=== PATIENT | female | born 1945 | race Caucasian/White ===

== ENCOUNTER 2018-07-18 14:58 | Observation (INO) ==
[2018-07-18] MEDS ORDERED: Dextrose 50% in Water 50 ML Vial IV.PUSH PRN (22:34)
[2018-07-18] MEDS: MethylPREDNISolone Sod Succinate Inj 40 MG/ML Vial IV.PUSH SCH (23:44)
[2018-07-19] MEDS: Insulin NovoLOG Aspart Correctional Sugar Inj SQ SCH ×5 (00:15→23:04)
[2018-07-19] MEDS ORDERED: Melatonin 5 MG Tablet PO ONE (01:24)
[2018-07-19] MEDS: MethylPREDNISolone Sod Succinate Inj 40 MG/ML Vial IV.PUSH SCH (05:35)
[2018-07-19] MEDS: MethylPREDNISolone Sod Succinate Inj 125 MG/2 ML Vial IV.PUSH SCH ×3 (07:18→22:53)
[2018-07-19 07:49] LABS: Baso % (Auto) 0.2 % (0.0-2.0); Eos % (Auto) 0.1 % (0.0-4.0); Hematocrit 36.2 % (35.0-46.0); Hemoglobin 12.6 gm/dL (11.6-15.3); Lymph # (Auto) 0.8 th/mm3 (1.0-4.8); Lymph % (Auto) 10.7 % (9.0-44.0); Mean Corpuscular HGB Conc 34.8 % (32.0-36.0); Mean Corpuscular Hemoglobin 30.6 pg (27.0-34.0); Mean Corpuscular Volume 87.9 fL (80.0-100.0); Mean Platelet Volume 7.4 fL (7.0-11.0); Mono # (Auto) 0.1 th/mm3 (0.0-0.9); Mono % (Auto) 1.8 % (0.0-8.0); Neut # (Auto) 6.7 th/mm3 (1.8-7.7); Neut % (Auto) 87.2 % (16.0-70.0); Platelet Count 390 th/mm3 (150-450); Red Blood Count 4.11 mil/mm3 (4.00-5.30); Red Cell Distribution Width 13.5 % (11.6-17.2); White Blood Count 7.6 th/mm3 (4.0-11.0)
[2018-07-19 08:00] LABS: Potassium 4.1 meq/L (3.5-5.1)
[2018-07-19 08:03] LABS: Calcium 8.6 mg/dL (8.5-10.1)
[2018-07-19 08:04] LABS: Carbon Dioxide 26.9 meq/L (21.0-32.0); Magnesium 2.2 mg/dL (1.5-2.5)
[2018-07-19] MEDS: Azithromycin Inj 250 MG in Sodium Chlor 0.9% Inj 250 ML IV.SIG SCH (08:45)
--- NOTE | 2018-07-19 09:31 | NM ---
EXAM DATE: 07/19/2018 9:26 AM EST AGE/SEX: 72 years / Female INDICATIONS: Shortness of breath and chest pain. CLINICAL DATA: This is the patient's initial encounter. Patient reports that signs and symptoms have been present for 1 day and indicates a pain score of 4/10. MEDICAL/SURGICAL HISTORY: Hypertension. Chronic obstructive pulmonary disease. Diabetes melli tus type II. Hysterectomy. Inguinal hernia repair. COMPARISON: [facility], CHEST 1V SINGLE AP, 07/18/2018. . DOSE: 2.3 mCi Tc99m DTPA aerosol 8.1 mCi Tc99m MAA IV TECHNIQUE: Following five minutes of tidal breathing of DTPA aerosol, planar images of the lungs wer e performed in eight projections. The patient was then injected with MAA, and eight-view perfusion s can was performed. FINDINGS: There is heterogeneous liver of aerosol with multiple patchy ventilatory abnormalities identified. The perfusion lung scan demonstrates a homogenous pattern of uptake in both lungs. No segmental or s ubsegmental defects are seen. Chest x-ray dated 07/18/2018 is unremarkable. CONCLUSION: 1. No significant perfusion abnormality identified. Examination is negative for pulmonary embolus. 2. There is patchy ventilation suggesting possible COPD. Electronically signed by: Johnathan Mistry MD 07/19/2018 9:29 AM EST
--- NOTE | 2018-07-19 10:40 | P.HP ---
History of Present Illness Primary Care Physician: Rafa Cuenca MD Chief Complaint: UR complaints and shortness of breath x 1 week History of Present Illness: Is a 72-year-old female patient with a known medical history of hyperlipidemia, hypothyroidism, hypertension and tobacco abuse who presented to the ED with complaints of coughing, sore throat and worsening shortness of breath times 1 week. Patient states that she went to her doctor on 07/14/18 with said complaints and was given prednisone as well as a round of Levaquin, patient states she is taken 3 doses of these medications without relief of her symptoms. She states that her shortness of breath is getting worse, especially with exertion. She does admit to recent travel, was on a cruise and states that all of her friends got sick with upper respiratory infections since being home. She denies any recent fevers, chills, headache, chest pain, dumping, nausea, vomiting, diarrhea or dysuria. She does state that her cough was initially productive with yellow sputum although is now dry at this time. Patient states she uses her inhaler at home which has been ineffective for helping her symptoms. She does not follow with a detonator assembler, no history of COPD. Does admit to smoking a pack a day of cigarettes for 20 years now. At the time of assessment, patient is on 2 L nasal cannula, breathing comfortably states she feels mildly improved although her shortness of breath is continued with ambulation. - Diagnosis (1) COPD with exacerbation (2) Failure of outpatient treatment Review of Systems All other systems reviewed negative except as stated in [facility] - History History Provided By: Patient - Medical History Medical History: Medical History (Last Reviewed 07/19/18 @ 12:22 by Cassie Delgado) COPD (chronic obstructive pulmonary disease) Chronic kidney disease Diabetes Fibromyalgia H/O: hysterectomy Hypertension - Surgical History Surgical History: Surgical History (Last Reviewed 07/19/18 @ 12:22 by Cassie Delgado) H/O bladder repair surgery History of repair of hiatal hernia - Family History Family History: Family History (Last Updated 07/19/18 @ 12:22 by Cassie Delgado) Other Family history non-contributory - Social History I have reviewed the patient's Social History: Yes - Tobacco History Second Hand Smoke Exposure: Yes Tobacco Use In Past 30 Days: Yes Smoking Status: Current some day smoker Tobacco Type: Cigarettes - Alcohol History How Often Do You Have a Drink Containing Alcohol: Never - Substance Use History Substance History: No History of Abuse - Immunization History Tetanus Immunization: Unable to Assess Hx Influenza Vaccine This Season: Yes Medications and Allergies Active Medications: Active Medications Albuterol (Duoneb Neb (Dylan)) 1 ampul NEB Q4HR WHILE AWAKE NEB DYLAN Last Admin: 07/19/18 07:21 Dose: 1 ampul Dextrose (D50w Vial) 50 ml IV.PUSH UNSCH PRN PRN Reason: PER HYPOGLYCEMIA PROTOCOL Glucagon (Glucagon Inj) 1 mg OTHER PRN PRN PRN Reason: for Hypoglycemia Protocol Azithromycin 250 mg/ Sodium (Chloride) 250 mls @ 250 mls/hr IV.SIG Q24H DYLAN Last Infusion: 07/19/18 10:03 Dose: Infused Ceftriaxone Sodium 1,000 mg/ (Sodium Chloride) 100 mls @ 200 mls/hr IV.SIG Q24H DYLAN Last Infusion: 07/19/18 10:03 Dose: Infused Insulin Aspart (Novolog Insulin Correctional Sugar Inj) 0 unit SQ ACHS DYLAN; Protocol Last Admin: 07/19/18 08:14 Dose: 3 unit Methylprednisolone Sodium Succinate (Solumedrol Inj) 60 mg IV.PUSH Q8HR DYLAN Last Admin: 07/19/18 07:18 Dose: Not Given Allergies Allergy/AdvReac Type Severity Reaction Status Date / Time iodine Allergy Severe Rash Verified 07/19/18 11:23 latex Allergy Severe Hives Verified 10/14/17 18:36 morphine Allergy Severe Hives Verified 10/14/17 18:36 metoclopramide [From Reglan] Allergy Hives Verified 07/18/18 15:03 DYE Allergy Severe Hives Uncoded 10/14/17 18:36 Home Medications Medication Instructions Recorded Confirmed Type atorvastatin 40 mg PO DAILY 06/21/18 07/18/18 History budesonide-formoterol [Symbicort] 2 puff INHALATION BID 06/21/18 07/18/18 History fenofibrate nanocrystallized 145 mg PO DAILY 06/21/18 07/18/18 History [Tricor] fluticasone-salmeterol [Advair 1 puff INHALATION BID 06/21/18 07/18/18 History Diskus] glimepiride 2 mg PO DAILY 06/21/18 07/18/18 History levothyroxine 50 mcg PO DAILY 06/21/18 07/18/18 History linagliptin [Tradjenta] 5 mg PO DAILY 06/21/18 07/18/18 History metoprolol tartrate 25 mg PO BID 06/21/18 07/18/18 History mirabegron [Myrbetriq] 50 mg PO DAILY 06/21/18 07/18/18 History omeprazole 20 mg PO DAILY 06/21/18 07/18/18 History Exam Vital signs: Vital Signs 07/18/18 20:50 07/18/18 21:45 07/19/18 00:00 Temperature 97 F L 97.4 F L Pulse Rate 76 78 86 Respiratory Rate 18 20 18 Blood Pressure 178/91 H 175/84 H Pulse Oximetry 92 L 95 92 L 07/19/18 04:00 07/19/18 07:24 07/19/18 08:00 Temperature 96.4 F L 97.2 F L Pulse Rate 76 73 Respiratory Rate 18 20 Blood Pressure 143/68 H 165/75 H Pulse Oximetry 94 L 93 L 95 Intake & Output 07/18/18 07/19/18 07/19/18 18:59 06:59 18:59 Intake Total 720 / 720 590 / 590 Output Total 200 / 200 Balance 720 / 720 390 / 390 Weight 93.2 kg Intake: IV 350 / 350 Azithromycin Inj 250 MG In NS 250 / 250 Inj 250 ML @ 250 mls/hr IV.SIG Q24H DYLAN Rx#:[id number] Rocephin Inj 1,000 MG In NS Inj 100 / 100 100 ML @ 200 mls/hr IV.SIG Q24H DYLAN Rx#:[id number] Oral 720 / 720 240 / 240 Output: Urine 200 / 200 Other: # Voids 1 Date of Last Bowel Movement 07/18/18 07/18/18 Weight On Admission 93 kg Narrative: GENERAL: Well-developed, well-nourished patient in NAD. On 2 L nasal cannula. SKIN: Warm and dry. No rash. HEAD: Normocephalic. Atraumatic. EYES: Pupils equal and round. No scleral icterus. No injection or drainage. ENT: No nasal bleeding or discharge. Mucous membranes pink and moist. NECK: Supple. Trachea midline. CARDIOVASCULAR: Regular rate and rhythm. S1, S2 noted. No murmur appreciated. RESPIRATORY: No accessory muscle use. Expiratory wheezing noted throughout entire lung craig. Breath sounds equal bilaterally. GASTROINTESTINAL: Abdomen soft, non-tender, nondistended. Normoactive bowel sounds x4. MUSCULOSKELETAL: No obvious deformities. Extremities without clubbing, cyanosis , or edema. NEUROLOGICAL: Awake and alert. No obvious cranial nerve deficits. Motor grossly within normal limits. 5/5 muscle strength in bilateral upper and lower extremities. Normal speech. PSYCHIATRIC: Appropriate mood and affect; insight and judgment normal. Results - Labs CBC & Chem 7: 07/19/18 07:33 07/19/18 07:33 Labs: Laboratory Results - last 24 hr 07/19/18 07/19/18 07/19/18 00:09 06:57 07:33 CBC w Diff Auto diff final WBC 7.6 RBC 4.11 Hgb 12.6 Hct 36.2 MCV 87.9 MCH 30.6 MCHC 34.8 RDW 13.5 Plt Count 390 MPV 7.4 Neut % (Auto) 87.2 H Lymph % (Auto) 10.7 [place] % (Auto) 1.8 Eos % (Auto) 0.1 Baso % (Auto) 0.2 Neut # (Auto) 6.7 Lymph # (Auto) 0.8 L [place] # (Auto) 0.1 Eos # (Auto) 0.0 Baso # (Auto) 0.0 WBC Differential . Differential Comment . Sodium Potassium Chloride Carbon Dioxide Anion Gap BUN Creatinine Estimated GFR POC Glucose 276 H 235 H Random Glucose Calcium Magnesium 07/19/18 07:33 CBC w Diff WBC RBC Hgb Hct MCV MCH MCHC RDW Plt Count MPV Neut % (Auto) Lymph % (Auto) [place] % (Auto) Eos % (Auto) Baso % (Auto) Neut # (Auto) Lymph # (Auto) [place] # (Auto) Eos # (Auto) Baso # (Auto) WBC Differential Differential Comment Sodium 137 Potassium 4.1 Chloride 101 Carbon Dioxide 26.9 Anion Gap 9 BUN 30 H Creatinine 1.20 H Estimated GFR 44 L POC Glucose Random Glucose 226 H Calcium 8.6 Magnesium 2.2 - Imaging Impressions Pulmonary Perfusion Imaging 07/19/18 00:00 CONCLUSION: 1. No significant perfusion abnormality identified. Examination is negative for pulmonary embolus. 2. There is patchy ventilation suggesting possible COPD. Caprini VTE Risk Assessment Caprini VTE Risk Assessment: Moderate/High Risk (score >= 2) Caprini Risk Assessment Model: Point Value = 1 Point Value = 2 Point Value = 3 Point Value = 5 Age 41-60 Minor surgery BMI > 25 kg/m2 Swollen legs Varicose veins or History of unexplained or recurrent spontaneous Oral contraceptives or hormone replacement Sepsis (< 1 month) Serious lung disease, including pneumonia (< 1 month) Abnormal pulmonary function Acute myocardial infarction Congestive heart failure (< 1 month) History of inflammatory bowel disease Medical patient at bed rest Age 61-74 Arthroscopic surgery Major open surgery (> 45 min) Laparoscopic surgery (> 45 min) Malignancy Confined to bed (> 72 hours) Immobilizing plaster cast Central venous access Age >= 75 History of VTE Family history of VTE Factor V Leiden Prothrombin [id number] Lupus anticoagulant Anticardiolipin antibodies Elevated serum homocysteine Heparin-induced thrombocytopenia Other congenital or acquired thrombophilia Stroke (< 1 month) Elective arthroplasty Hip, pelvis, or leg fracture Acute spinal cord injury (< 1 month) Prophylaxis Regimen: Total Risk Factor Score Risk Level Prophylaxis Regimen 0-1 Low Early ambulation 2 Moderate Order ONE of the following: *Sequential Compression Device (SCD) *Heparin 5000 units SQ BID 3-4 Higher Order ONE of the following medications: *Heparin 5000 units SQ TID *Enoxaparin/Lovenox 40 mg SQ daily (WT < 150 kg, CrCl > 30 mL/min) *Enoxaparin/Lovenox 30 mg SQ daily (WT < 150 kg, CrCl > 10-29 mL/min) *Enoxaparin/Lovenox 30 mg SQ BID (WT < 150 kg, CrCl > 30 mL/min) AND/OR *Sequential Compression Device (SCD) 5 or more Highest Order ONE of the following medications: *Heparin 5000 units SQ TID (Preferred with Epidurals) *Enoxaparin/Lovenox 40 mg SQ daily (WT < 150 kg, CrCl > 30 mL/min) *Enoxaparin/Lovenox 30 mg SQ daily (WT < 150 kg, CrCl > 10-29 mL/min) *Enoxaparin/Lovenox 30 mg SQ BID (WT < 150 kg, CrCl > 30 mL/min) AND *Sequential Compression Device (SCD) Assessment and Plan - Assessment (1) COPD with exacerbation Code(s): J44.1 - Chronic obstructive pulmonary disease with (acute) exacerbation Status: Acute (2) Failure of outpatient treatment Code(s): Z78.9 - Other specified health status Status: Acute - Plan This is a 72-year-old female patient with Acute exacerbation of COPD Possible new COPD diagnosis Failed outpatient antibiotics and steroids History of tobacco abuse -Patient presents with a one-week history of worsening shortness of breath, sore throat productive cough. Patient was recently prescribed prednisone and Levaquin without improvement of her symptoms. -Patient is requiring supplemental O2, 2 L nasal cannula. Wean as tolerated. -Chest x-ray reviewed showing no acute cardiopulmonary disease. No presence of pneumonia. Will obtain chest CT. Follow. -D-dimer was mildly elevated in ED, VQ scan was done to rule out PE. This has been ruled out. -Patient does not follow with a detonator assembler, pulmonology consulted, input recommendations pending. Has never been diagnosed with COPD. Will possibly need PFTs? -Patient started on ceftriaxone and azithromycin in the ED. Will continue at this time. -Added Mucinex. Continue with Symbicort inhaler. DuoNeb scheduled and as needed for wheezing and shortness of breath. -Patient has been started on IV steroids scheduled. Will continue. Sputum culture ordered and pending. -Encourage cessation of tobacco. Nicotine patch offered. Type 2 diabetes mellitus, chronic: Accu-Chek before meals at bedtime, sliding scale, cover as needed. Hold home medications. Monitor blood sugar trends especially on IV steroids. Wean as tolerated. Hypothyroidism, chronic: Continue home levothyroxine. Hyperlipidemia, chronic: We will continue home medications. DVT prophylaxis: SCDs. Heparin.
[2018-07-19] MEDS ORDERED: Dextrose 50% in Water 50 ML Vial IV.PUSH PRN (11:09)
[2018-07-19] MEDS: guaiFENesin 600 MG ER Tablet PO SCH ×2 (12:31→22:56)
--- NOTE | 2018-07-19 13:38 | CT ---
EXAM DATE: 07/19/2018 1:09 PM EST AGE/SEX: 72 years / Female INDICATIONS: Short of breath. CLINICAL DATA: This is the patient's initial encounter. Patient reports that signs and symptoms have been present for 1 week and indicates a pain score of 0/10. MEDICAL/SURGICAL HISTORY: Chronic obstructive pulmonary disease. Renal insufficiency, chronic. Di abetes. Hypertension. Hysterectomy. Bladder repair. Hiatal hernia repair. RADIATION DOSE: 9.56 CTDI (mGy) COMPARISON: No prior exams available for comparison. TECHNIQUE: Multiple contiguous axial images were obtained through the chest without contrast. Image s were obtained in suspended respiration using multiple row detector helical technique. Using automa lulu exposure control and adjustment of the mA and/or kV according to patient size, radiation dose was kept as low as reasonably achievable to obtain optimal diagnostic quality images. DICOM format imag e data is available electronically for review and comparison. FINDINGS: Lungs: 2 small less than 4 mm irregular shaped opacities in both lungs, nonspecific. There is no inf iltrate or pleural effusion. Mediastinum: There is good visualization of the great vessels of the middle mediastinum. No evidenc e of mediastinal or hilar adenopathy/mass. There is no axillary adenopathy Bony Structures: Unremarkable. Miscellaneous: The examination was extended to include the upper abdomen, and both adrenal glands ar e normal in size and configuration. Evidence for previous ventral hernia repair CONCLUSION: 1. 2 small less than 4 mm opacities in both lungs, nonspecific. 6 month follow-up is suggested. Electronically signed by: Omkar Mistry MD 07/19/2018 1:37 PM EST
[2018-07-19] MEDS: Heparin - SQ 10,000 UNITS/ML Vial SQ SCH (22:54)
[2018-07-19] MEDS: Budesonide-Formoterol 80/4.5 MCG 6.9 GM Inhaler INH SCH ×2 (22:55→22:57)
[2018-07-20] MEDS: MethylPREDNISolone Sod Succinate Inj 125 MG/2 ML Vial IV.PUSH SCH ×2 (06:07→13:24)
[2018-07-20] MEDS: Levothyroxine 50 MCG Tablet PO SCH (06:07)
[2018-07-20] MEDS: Insulin NovoLOG Aspart Correctional Sugar Inj SQ SCH ×4 (07:57→20:37)
[2018-07-20] MEDS: Heparin - SQ 10,000 UNITS/ML Vial SQ SCH ×2 (08:08→20:35)
[2018-07-20] MEDS: Pantoprazole Sodium 20 MG DR Tablet PO SCH (08:11)
[2018-07-20] MEDS: Fenofibrate 145 MG Tablet PO SCH (08:11)
[2018-07-20] MEDS: Tolterodine Tartrate LA 4 MG Capsule PO SCH (08:11)
[2018-07-20] MEDS: guaiFENesin 600 MG ER Tablet PO SCH ×2 (08:11→20:36)
[2018-07-20] MEDS: Glimepiride 2 MG Tablet PO SCH (08:11)
[2018-07-20] MEDS: Budesonide-Formoterol 80/4.5 MCG 6.9 GM Inhaler INH SCH ×4 (08:12→21:25)
[2018-07-20] MEDS: Azithromycin Inj 250 MG in Sodium Chlor 0.9% Inj 250 ML IV.SIG SCH (08:28)
[2018-07-20] MEDS: Sodium Chloride 0.9% 2 ML Flush PRN IV.FLUSH ×2 (08:29→21:27)
[2018-07-20] MEDS: Sodium Chloride 0.9% 2 ML Flush BID IV.FLUSH SCH ×2 (08:31→20:37)
--- NOTE | 2018-07-20 10:01 | P.PNIM ---
Subjective Interval history: Follow up COPD exacerbation. Patient seen and examined, lying in bed on 1 L NC. Continued complaints of shortness of breath, actually feels worse today than yesterday. Admits to ambulating all day yesterday on O2. Afebrile. On exam patient has continued expiratory wheezing. Awaiting pulmonary input. Physical Exam Vital signs: Vital Signs 07/19/18 11:22 07/19/18 15:51 07/19/18 16:00 Temperature 97.5 F L Pulse Rate 80 71 80 Respiratory Rate 18 20 Blood Pressure 143/75 H Pulse Oximetry 95 07/19/18 19:35 07/19/18 20:00 07/20/18 00:00 Temperature 96.3 F L 96.5 F L Pulse Rate 81 81 89 Respiratory Rate 18 18 18 Blood Pressure 172/80 H 177/87 H Pulse Oximetry 95 92 L 93 L 07/20/18 02:48 07/20/18 08:03 Temperature Pulse Rate 81 Respiratory Rate 18 20 Blood Pressure Pulse Oximetry Intake & Output 07/19/18 07/20/18 07/20/18 18:59 06:59 18:59 Intake Total 1070 / 1070 720 / 720 Output Total 600 / 600 Balance 470 / 470 720 / 720 Weight 93.3 kg Intake: IV 350 / 350 Azithromycin Inj 250 MG In NS 250 / 250 Inj 250 ML @ 250 mls/hr IV.SIG Q24H DYLAN Rx#:[id number] Rocephin Inj 1,000 MG In NS Inj 100 / 100 100 ML @ 200 mls/hr IV.SIG Q24H DYLAN Rx#:[id number] Oral 720 / 720 720 / 720 Output: Urine 600 / 600 Other: # Voids 4 # Urine Diapers 1 Date of Last Bowel Movement 07/18/18 07/19/18 # Bowel Movements 1 Narrative: GENERAL: Well-developed, well-nourished patient in NAD. On 2 L nasal cannula. SKIN: Warm and dry. No rash. HEAD: Normocephalic. Atraumatic. EYES: Pupils equal and round. No scleral icterus. No injection or drainage. ENT: No nasal bleeding or discharge. Mucous membranes pink and moist. NECK: Supple. Trachea midline. CARDIOVASCULAR: Regular rate and rhythm. S1, S2 noted. No murmur appreciated. RESPIRATORY: No accessory muscle use. Expiratory wheezing noted throughout entire lung craig. Breath sounds equal bilaterally. GASTROINTESTINAL: Abdomen soft, non-tender, nondistended. Normoactive bowel sounds x4. MUSCULOSKELETAL: No obvious deformities. Extremities without clubbing, cyanosis , or edema. NEUROLOGICAL: Awake and alert. No obvious cranial nerve deficits. Motor grossly within normal limits. 5/5 muscle strength in bilateral upper and lower extremities. Normal speech. PSYCHIATRIC: Appropriate mood and affect; insight and judgment normal. Results - Labs CBC & Chem 7: 07/19/18 07:33 07/19/18 07:33 Laboratory Results - last 24 hr 07/19/18 07/19/18 07/19/18 11:06 15:54 22:47 POC Glucose 236 H 193 H 294 H 07/20/18 07:34 POC Glucose 253 H - Imaging Impressions Chest CT 07/19/18 00:00 CONCLUSION: 1. 2 small less than 4 mm opacities in both lungs, nonspecific. 6 month follow- up is suggested. Assessment and Plan - Assessment (1) COPD with exacerbation Code(s): J44.1 - Chronic obstructive pulmonary disease with (acute) exacerbation Status: Acute (2) Failure of outpatient treatment Code(s): Z78.9 - Other specified health status Status: Acute - Plan This is a 72-year-old female patient with Acute exacerbation of COPD Possible new COPD diagnosis Failed outpatient antibiotics and steroids History of tobacco abuse -Patient presents with a one-week history of worsening shortness of breath, sore throat productive cough. Patient was recently prescribed prednisone and Levaquin without improvement of her symptoms. -Patient is requiring supplemental O2, 1 L nasal cannula. Wean as tolerated. Continued expiratory wheezing. -Chest x-ray reviewed showing no acute cardiopulmonary disease. No presence of pneumonia. -Chest CT obtained showing 2 small opacities with recommendations to follow up scan in 6 months. No acute findings. -D-dimer was mildly elevated in ED, VQ scan was done to rule out PE. This has been ruled out. -Patient does not follow with a follow up rep, pulmonology consulted, input and recommendations pending. -No history of formal diagnosis of COPD. Will possibly need PFTs? -Patient started on ceftriaxone and azithromycin in the ED. Will continue at this time. -Continue Mucinex. Continue with Symbicort inhaler. DuoNeb scheduled and as needed for wheezing and shortness of breath. -Patient has been started on IV steroids scheduled. Will continue and wean as improvement seen. Sputum culture ordered and pending. -Encourage cessation of tobacco. Nicotine patch offered. Type 2 diabetes mellitus, chronic: Accu-Chek before meals at bedtime, sliding scale, cover as needed. Hold home medications. Monitor blood sugar trends especially on IV steroids. Wean as tolerated. Hypothyroidism, chronic: Continue home levothyroxine. Hyperlipidemia, chronic: Will continue home medications. DVT prophylaxis: SCDs. Heparin. Discharge Planning: Awaiting clinical improvement and pulmonology input.
[2018-07-20] MEDS: amLODIPine 5 MG Tablet PO SCH (10:10)
--- NOTE | 2018-07-20 13:55 | MB ---
cc: Radha Garcia MD DATE: 07/20/2018 REASON FOR CONSULTATION: COPD exacerbation. HISTORY OF PRESENT ILLNESS: Ms. Oconnor is a 72-year-old female who comes to the emergency room complaining of increasing shortness of breath and cough, expectoration of whitish and occasionally yellowish mucoid secretion. No fever, no chills. No hemoptysis. She saw her PCP on 07/14/2018 and was given antibiotic therapy, steroid therapy orally without improvement. She is hospitalized with exacerbation of COPD, although she does not have history of same. PAST MEDICAL HISTORY: Diabetes mellitus, chronic kidney disease, fibromyalgia, hypertension, probable COPD. SURGICAL HISTORY: She had a previous bladder repair surgery and hernia repair. SOCIAL HISTORY: She smokes a pack of cigarettes a day, continues to smoke up until this time. She does not use drugs. No TB, no industrial exposure. FAMILY HISTORY: Noncontributory. MEDICATIONS: 1. Atorvastatin. 2. Budesonide/formoterol nebulizer. 3. Fenofibrate. 4. Advair twice daily. 5. Glimepiride. 6. Levothyroxine. 7. Tradjenta. 8. Metoprolol. 9. Myrbetriq. 10. Omeprazole. ALLERGIES: IODINE, LATEX, MORPHINE, METOCLOPRAMIDE, IV DYE. REVIEW OF SYSTEMS: A 12-point review of systems as per HPI and past history. Otherwise negative. PHYSICAL EXAMINATION: VITAL SIGNS: Temperature 97, pulse 80, respirations 18, blood pressure 160/80. HEENT: Unremarkable. Eyes without icterus. NECK: Without adenopathy, thyroid enlargement. Central trachea. CHEST: Scattered rhonchi bilaterally, decreased with cough. CARDIAC: PMI not appreciated. S1, S2 audible. No murmur. No rub. ABDOMEN: Lax, bowel sounds audible. EXTREMITIES: No clubbing, cyanosis, or edema. LABORATORY DATA: White count 7.6, hemoglobin 12, hematocrit 36, platelets 390,000. Sodium 137, potassium 4.1, BUN 30, creatinine 1.2. Perfusion lung scan with low probability for pulmonary embolism. CT of the chest 07/19/2018 was with two less than 4 mm nodules bilaterally. A followup CT scan was suggested in 6 months. IMPRESSION: 1. Chronic obstructive pulmonary disease exacerbation. 2. Diabetes mellitus. 3. Hypertension. 4. Hyperlipidemia. 5. Hypothyroidism. PLAN: The patient will be maintained on oxygen therapy as needed. Whether she needs home oxygen therapy will be determined upon her discharge. Continue antibiotic therapy, which has been started on empiric basis and appropriately so. CT scan in 6 months will be undertaken as an outpatient. We will follow her course along with you and check baseline pulmonary function. I do thank you for asking me to partake in Ms. Hull's care. Radha Garcia MD WWW/ , 12:23 PM , 12:35 PM
[2018-07-20 14:50] LABS: ABG Base Excess 0.1 mmol/L (-2-2); ABG PCO2 37 mmHg (38-42); ABG PO2 62 mmHg (61-120)
[2018-07-20] MEDS: Nystatin Liq 500,000 UNIT/5 ML UDC SWISH-SWAL SCH ×2 (17:22→20:34)
[2018-07-20] MEDS ORDERED: guaiFENesin/Dextromethorphan 200 MG/20 MG 10 ML UDC PO PRN (20:00)
[2018-07-20] MEDS: MethylPREDNISolone Sod Succinate Inj 40 MG/ML Vial IV.PUSH SCH (21:26)
[2018-07-21] MEDS: MethylPREDNISolone Sod Succinate Inj 40 MG/ML Vial IV.PUSH SCH ×2 (06:39→13:14)
[2018-07-21] MEDS: Sodium Chloride 0.9% 2 ML Flush PRN IV.FLUSH (06:39)
[2018-07-21] MEDS: Levothyroxine 50 MCG Tablet PO SCH (06:40)
[2018-07-21 07:15] LABS: Potassium 4.3 meq/L (3.5-5.1)
[2018-07-21 07:17] LABS: Calcium 8.6 mg/dL (8.5-10.1)
[2018-07-21] MEDS: Insulin NovoLOG Aspart Correctional Sugar Inj SQ SCH ×2 (07:36→11:53)
[2018-07-21] MEDS: Azithromycin Inj 250 MG in Sodium Chlor 0.9% Inj 250 ML IV.SIG SCH (07:39)
[2018-07-21] MEDS: guaiFENesin 600 MG ER Tablet PO SCH (08:27)
[2018-07-21] MEDS: Tolterodine Tartrate LA 4 MG Capsule PO SCH (08:27)
[2018-07-21] MEDS: Glimepiride 2 MG Tablet PO SCH (08:27)
[2018-07-21] MEDS: Fenofibrate 145 MG Tablet PO SCH (08:27)
[2018-07-21] MEDS: Pantoprazole Sodium 20 MG DR Tablet PO SCH (08:27)
[2018-07-21] MEDS: amLODIPine 5 MG Tablet PO SCH (08:27)
[2018-07-21] MEDS: Nystatin Liq 500,000 UNIT/5 ML UDC SWISH-SWAL SCH ×2 (08:28→12:36)
[2018-07-21] MEDS: Heparin - SQ 10,000 UNITS/ML Vial SQ SCH (08:30)
[2018-07-21] MEDS: Budesonide-Formoterol 80/4.5 MCG 6.9 GM Inhaler INH SCH ×2 (08:33→08:34)
[2018-07-21] MEDS: Sodium Chloride 0.9% 2 ML Flush BID IV.FLUSH SCH (08:34)
--- NOTE | 2018-07-21 09:34 | P.DS ---
Date of admission: 07/18/18 21:18 Primary care physician: Rafa Cuenca MD Anticipated date of discharge: 07/21/18 Brief History from admission: Is a 72-year-old female patient with a known medical history of hyperlipidemia, hypothyroidism, hypertension and tobacco abuse who presented to the ED with complaints of coughing, sore throat and worsening shortness of breath times 1 week. Patient states that she went to her doctor on 07/14/18 with said complaints and was given prednisone as well as a round of Levaquin, patient states she is taken 3 doses of these medications without relief of her symptoms. She states that her shortness of breath is getting worse, especially with exertion. She does admit to recent travel, was on a cruise and states that all of her friends got sick with upper respiratory infections since being home. She denies any recent fevers, chills, headache, chest pain, dumping, nausea, vomiting, diarrhea or dysuria. She does state that her cough was initially productive with yellow sputum although is now dry at this time. Patient states she uses her inhaler at home which has been ineffective for helping her symptoms. 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 Does admit to smoking a pack a day of cigarettes for 20 years now. At the time of assessment, patient is on 2 L nasal cannula, breathing comfortably states she feels mildly improved although her shortness of breath is continued with ambulation. Patient update on day of discharge: Follow up COPD exacerbation. Patient seen and examined, lying in bed on RA. Doing much better. Wheezing has improved, still some residual expiratory wheezing in right posterior upper and lower lobes. Patient is able to ambulate without any difficulty. VSS. Afebrile. DS: Diagnosis - Discharge Diagnosis (1) COPD with exacerbation Status: Acute (2) Failure of outpatient treatment Status: Acute DS: Medications - Discharge Medications Prescriptions: amlodipine [Norvasc] 5 mg PO DAILY 30 Days #30 tab amoxicillin-pot clavulanate [Augmentin] 1 tab PO BID 5 Days #10 tab guaifenesin [Mucinex] 600 mg PO BID 5 Days #10 tab nystatin 5 ml SWISH-SWAL QID 3 Days #60 ml prednisone 20 mg PO DAILY 5 Days #5 tab DS: Summary Hospital Course: This is a 72-year-old female patient with acute exacerbation of COPD, failed outpatient antibiotics and steroids and history of tobacco abuse. Patient presented with a one-week history of worsening shortness of breath, sore throat productive cough. Patient was recently prescribed prednisone and Levaquin without improvement of her symptoms. Patient required supplemental O2, Now weaned to RA. Chest x-ray no acute cardiopulmonary disease. No presence of pneumonia. Chest CT obtained showing 2 small opacities with recommendations to follow up scan in 6 months. No acute findings. D-dimer was mildly elevated in ED , VQ scan was done to rule out PE. This has been ruled out. Patient does not follow with a tank wagon operator, pulmonology consulted during hospitalization. Patient started on ceftriaxone and azithromycin in the ED, continued during hospitalization. Given Augmentin for home. Continue Mucinex. Continue with Symbicort inhaler. Continue nebulizers at home. Steroids given IV during hospitalization, wean on DC. Encourage cessation of tobacco. Patient with type 2 diabetes mellitus, chronic, accu-Chek before meals at bedtime, sliding scale, cover as needed. Continue home medications. Hypothyroidism, chronic, continue home levothyroxine. Hyperlipidemia, chronic, will continue home medications. Stable on DC. RX as written. Activity as tolerated. Diabetic diet as tolerated. Follow up PCP and tank wagon operator. - Time Spent with Patient Total time spent providing and/or coordinating discharge services: Greater than 30 minutes - Quality: VTE Deep Vein Thrombosis/Pulmonary Embolism Present on Admission: No Exam Vital signs: Vital Signs 07/20/18 11:30 07/20/18 12:00 07/20/18 15:50 Temperature 98.1 F Pulse Rate 83 100 H 98 H Respiratory Rate 20 19 20 Blood Pressure 142/75 H Pulse Oximetry 94 L 92 L 07/20/18 19:27 07/20/18 20:00 07/21/18 00:00 Temperature 97.2 F L 96.3 F L Pulse Rate 82 86 90 Respiratory Rate 16 23 22 Blood Pressure 159/83 H 174/77 H Pulse Oximetry 94 L 92 L 91 L 07/21/18 04:00 07/21/18 06:58 07/21/18 08:00 Temperature 96.8 F L 97.0 F L Pulse Rate 87 79 82 Respiratory Rate 21 18 17 Blood Pressure 142/79 H 186/86 H Pulse Oximetry 91 L 94 L 92 L Intake & Output 07/20/18 07/21/1818 18:59 06:59 18:59 Intake Total 550 / 550 480 / 480 250 / 250 Balance 550 / 550 480 / 480 250 / 250 Weight 93 kg Intake: IV 250 / 250 250 / 250 Azithromycin Inj 250 MG In NS 250 / 250 250 / 250 Inj 250 ML @ 250 mls/hr IV.SIG Q24H DYLAN Rx#:[id number] Oral 300 / 300 480 / 480 Other: # Voids 2 4 # Bowel Movements 2 Narrative: GENERAL: Well-developed, well-nourished patient in NAD. On 2 L nasal cannula. SKIN: Warm and dry. No rash. HEAD: Normocephalic. Atraumatic. EYES: Pupils equal and round. No scleral icterus. No injection or drainage. ENT: No nasal bleeding or discharge. Mucous membranes pink and moist. NECK: Supple. Trachea midline. CARDIOVASCULAR: Regular rate and rhythm. S1, S2 noted. No murmur appreciated. RESPIRATORY: No accessory muscle use. Expiratory wheezing in right posterior lobes, improved. Breath sounds equal bilaterally. GASTROINTESTINAL: Abdomen soft, non-tender, nondistended. Normoactive bowel sounds x4. MUSCULOSKELETAL: No obvious deformities. Extremities without clubbing, cyanosis , or edema. NEUROLOGICAL: Awake and alert. No obvious cranial nerve deficits. Motor grossly within normal limits. 5/5 muscle strength in bilateral upper and lower extremities. Normal speech. PSYCHIATRIC: Appropriate mood and affect; insight and judgment normal. Results Procedures completed during hospitalization: See below. Labs on day of discharge: Labs from last 24 hours 07/21/18 07/21/18 07/20/18 07:17 06:15 20:32 Puncture Site Patient Temperature O2 Saturation ABG pH ABG pCO2 ABG pO2 ABG HCO3 ABG O2 Content ABG Base Excess ABG Methemoglobin Charlie Test Hemoglobin Carboxyhemoglobin O2 Delivery Device Inspired O2 Critical Value Sodium 136 Potassium 4.3 Chloride 100 Carbon Dioxide 28.0 Anion Gap 8 BUN 36 H Creatinine 1.10 H Estimated GFR 49 L POC Glucose 187 H 249 H Random Glucose 213 H Calcium 8.6 07/20/18 07/20/18 07/20/18 16:24 14:45 11:37 Puncture Site Right radial Patient Temperature 98.6 O2 Saturation 90 ABG pH 7.43 H ABG pCO2 37 L ABG pO2 62 ABG HCO3 24 ABG O2 Content 15.9 ABG Base Excess 0.1 ABG Methemoglobin 1.2 Charlie Test Y Hemoglobin 12.6 Carboxyhemoglobin 1.4 O2 Delivery Device Room air Inspired O2 21 Critical Value No Sodium Potassium Chloride Carbon Dioxide Anion Gap BUN Creatinine Estimated GFR POC Glucose 195 H 205 H Random Glucose Calcium - Impressions ITS Impressions Chest CT 07/19/18 00:00 CONCLUSION: 1. 2 small less than 4 mm opacities in both lungs, nonspecific. 6 month follow- up is suggested. Pulmonary Perfusion Imaging 07/19/18 00:00 CONCLUSION: 1. No significant perfusion abnormality identified. Examination is negative for pulmonary embolus. 2. There is patchy ventilation suggesting possible COPD. Discharge Plan - Discharge Disposition Patient Disposition: Discharge Home - Discharge Condition Condition: Good - Discharge Order Discharge Orders: Discharge Order (Routine); Ordered 07/21/18 Ordered By: Cassie Delgado - Discharge Details Anticipated Discharge Date: 07/21/18 - Physicians Team Primary Care Provider: Rafa Cuenca Attending Provider: Donna Kay Other Providers: [employer],Insurance ; Radha Garcia MD - Rxs /Orders / Referrals /Forms Prescriptions: New amlodipine [Norvasc] 5 mg Tablet 5 mg PO DAILY 30 Days Qty: 30 RF: 0 amoxicillin-pot clavulanate [Augmentin] 875-125 mg Tablet 1 tab PO BID 5 Days Qty: 10 RF: 0 guaifenesin [Mucinex] 600 mg Tablet Extended Release 12hr 600 mg PO BID 5 Days Qty: 10 RF: 0 nystatin 100,000 unit/mL Suspension 5 ml SWISH-SWAL QID 3 Days Qty: 60 RF: 0 prednisone 20 mg Tablet 20 mg PO DAILY 5 Days Qty: 5 RF: 0 Continue atorvastatin 40 mg Tablet 40 mg PO DAILY budesonide-formoterol [Symbicort] 80-4.5 mcg/actuation Hfa Aerosol Inhaler 2 puff INHALATION BID fenofibrate nanocrystallized [Tricor] 145 mg Tablet 145 mg PO DAILY fluticasone-salmeterol [Advair Diskus] 100-50 mcg/dose Blister With Device 1 puff INHALATION BID glimepiride 2 mg Tablet 2 mg PO DAILY levothyroxine 50 mcg Capsule 50 mcg PO DAILY linagliptin [Tradjenta] 5 mg Tablet 5 mg PO DAILY metoprolol tartrate 25 mg Tablet 25 mg PO BID mirabegron [Myrbetriq] 50 mg Tablet Extended Release 24 Hr 50 mg PO DAILY omeprazole 20 mg Tablet,Disintegrat, Delay Rel 20 mg PO DAILY Referrals: Rafa Cuenca MD [Primary Care Provider] - 07/29/18 Radha Garcia MD [Physician] - 07/29/18
--- NOTE | 2018-07-21 13:12 | P.PN ---
Subjective Interval history: alert ambulatingno sob Physical Exam Vital signs: Vital Signs 07/20/18 15:50 07/20/18 19:27 07/20/18 20:00 Temperature 97.2 F L Pulse Rate 98 H 82 86 Respiratory Rate 20 16 23 Blood Pressure 159/83 H Pulse Oximetry 92 L 94 L 92 L 07/21/18 00:00 07/21/18 04:00 07/21/18 06:58 Temperature 96.3 F L 96.8 F L Pulse Rate 90 87 79 Respiratory Rate 22 21 18 Blood Pressure 174/77 H 142/79 H Pulse Oximetry 91 L 91 L 94 L 07/21/18 08:00 07/21/18 11:26 Temperature 97.0 F L Pulse Rate 82 89 Respiratory Rate 17 18 Blood Pressure 186/86 H Pulse Oximetry 92 L Intake & Output 07/20/18 07/21/18 07/21/18 18:59 06:59 18:59 Intake Total 550 / 550 480 / 480 350 / 350 Balance 550 / 550 480 / 480 350 / 350 Weight 93 kg Intake: IV 250 / 250 350 / 350 Azithromycin Inj 250 MG In NS 250 / 250 250 / 250 Inj 250 ML @ 250 mls/hr IV.SIG Q24H DYLAN Rx#:[id number] Rocephin Inj 1,000 MG In NS Inj 100 / 100 100 ML @ 200 mls/hr IV.SIG Q24H DYLAN Rx#:[id number] Oral 300 / 300 480 / 480 Other: # Voids 2 4 Date of Last Bowel Movement 07/19/18 # Bowel Movements 2 Narrative: GENERAL: Well-developed, well-nourished patient in NAD. On 2 L nasal cannula. SKIN: Warm and dry. No rash. HEAD: Normocephalic. Atraumatic. EYES: Pupils equal and round. No scleral icterus. No injection or drainage. ENT: No nasal bleeding or discharge. Mucous membranes pink and moist. NECK: Supple. Trachea midline. CARDIOVASCULAR: Regular rate and rhythm. S1, S2 noted. No murmur appreciated. RESPIRATORY: No accessory muscle use. Expiratory wheezing in right posterior lobes, improved. Breath sounds equal bilaterally. GASTROINTESTINAL: Abdomen soft, non-tender, nondistended. Normoactive bowel sounds x4. MUSCULOSKELETAL: No obvious deformities. Extremities without clubbing, cyanosis , or edema. NEUROLOGICAL: Awake and alert. No obvious cranial nerve deficits. Motor grossly within normal limits. 5/5 muscle strength in bilateral upper and lower extremities. Normal speech. PSYCHIATRIC: Appropriate mood and affect; insight and judgment normal. Results - Labs CBC & Chem 7: 07/19/18 07:33 07/21/18 06:15 Laboratory Results - last 24 hr 07/20/18 07/20/18 07/20/18 14:45 16:24 20:32 Puncture Site Right radial Patient Temperature 98.6 O2 Saturation 90 ABG pH 7.43 H ABG pCO2 37 L ABG pO2 62 ABG HCO3 24 ABG O2 Content 15.9 ABG Base Excess 0.1 ABG Methemoglobin 1.2 Charlie Test Y Hemoglobin 12.6 Carboxyhemoglobin 1.4 O2 Delivery Device Room air Inspired O2 21 Critical Value No Sodium Potassium Chloride Carbon Dioxide Anion Gap BUN Creatinine Estimated GFR POC Glucose 195 H 249 H Random Glucose Calcium 07/21/18 07/21/18 07/21/18 06:15 07:17 11:37 Puncture Site Patient Temperature O2 Saturation ABG pH ABG pCO2 ABG pO2 ABG HCO3 ABG O2 Content ABG Base Excess ABG Methemoglobin Charlie Test Hemoglobin Carboxyhemoglobin O2 Delivery Device Inspired O2 Critical Value Sodium 136 Potassium 4.3 Chloride 100 Carbon Dioxide 28.0 Anion Gap 8 BUN 36 H Creatinine 1.10 H Estimated GFR 49 L POC Glucose 187 H 205 H Random Glucose 213 H Calcium 8.6 - Procedures See below. Assessment and Plan - Plan copd improved lung nodules, need F/U PLAN OK FOR D/C HOME OFFICE ONE WEEK F/U CT CHEST 6 MONTHS
[2018-07-21 13:36] VITALS: BP 142/84; PULSE 86; RESP 17; TEMP 97.2; O2SAT 88
== END 2018-07-21 14:01 | disposition home or self-care (01) ==
LOC: PH3 21:17 → PHEDDLT 21:17
PROVIDERS: ADMIT Hospitalist; ATTEND Hospitalist